=== PATIENT | male | born 1950 | race Two or more races ===

== ENCOUNTER → 2017-11-29 | Outpatient (CLI) | payer OTHER ==
[~2017-11-29] MED LIST: LISINOPRIL20 MG; NORVASC5 MG; PANADOL EXTRA500 MG; XANAX2 MG
== END | disposition home or self-care (01) ==
LOC: SONOGRAMA 12:48
DX: E04.2 Nontoxic multinodular goiter (principal); E03.8 Other specified hypothyroidism

== ENCOUNTER 2017-12-12 12:31 | Outpatient (CLI) | payer OTHER ==
[~2017-12-12] VITALS: Ht 162.6 cm; Wt 65.8 kg
== END 2017-12-12 12:40 | disposition home or self-care (01) ==
LOC: OFIC 805 12:31
DX: R42 Dizziness and giddiness (principal); R49.0 Dysphonia; R09.81 Nasal congestion

== ENCOUNTER 2017-12-19 09:21 | Outpatient (CLI) | payer OTHER ==
[~2017-12-19] VITALS: Ht 152.4 cm; Wt 65.8 kg
== END 2017-12-19 09:45 | disposition home or self-care (01) ==
LOC: OFIC 805 09:21
DX: R49.0 Dysphonia (principal); R09.81 Nasal congestion; R42 Dizziness and giddiness; H90.3 Sensorineural hearing loss, bilateral; H61.23 Impacted cerumen, bilateral

== ENCOUNTER 2018-07-17 09:30 | Outpatient (CLI) | payer OTHER | END 2018-07-17 09:47 | disposition home or self-care (01) | LOC: SONOGRAMA 09:30 | DX: E04.2 Nontoxic multinodular goiter (principal); E03.8 Other specified hypothyroidism ==

== ENCOUNTER 2018-07-23 15:04 | Inpatient (IN) | payer OTHER ==
[~2018-07-23] VITALS: Ht 162.6 cm; Wt 68.0 kg
== END 2018-08-12 13:56 | disposition home or self-care (01) | DRG 627 ==
LOC: O/R 08-09 04:30 → SURH 08-09 04:30
PROVIDERS: Specialist
PROC: 0GTK0ZZ Resection of Thyroid Gland, Open Approach (ICD-10-PCS; principal; 2018-08-09 07:00)
PROC: 3E0F7GC Introduction of Other Therapeutic Substance into Respiratory Tract, Via Natural or Artificial Opening (ICD-10-PCS; 2018-08-10)
PROC: 4A033R1 Measurement of Arterial Saturation, Peripheral, Percutaneous Approach (ICD-10-PCS; 2018-08-10)
DX: E04.2 Nontoxic multinodular goiter (principal); E83.51 Hypocalcemia; Z88.0 Allergy status to penicillin; I10 Essential (primary) hypertension; R13.19 Other dysphagia; R49.0 Dysphonia; E11.65 Type 2 diabetes mellitus with hyperglycemia

== ENCOUNTER 2018-08-23 19:42 | Emergency (ER) | payer OTHER ==
[~2018-08-23] VITALS: Ht 162.6 cm; Wt 65.8 kg
[2018-08-23] MEDS ORDERED: SYNTHROID50 MCG (19:50)
[2018-08-23] MEDS ORDERED: CALCIUM500 M2 (19:51)
[2018-08-24] MEDS ORDERED: KRISTALOSE20 GM PO (00:13)
== END 2018-08-24 00:45 | disposition home or self-care (01) ==
LOC: ER 19:42
DX: K59.09 Other constipation (principal)

== ENCOUNTER 2018-09-19 11:10 | Outpatient (CLI) | payer OTHER ==
[~2018-09-19 11:10] MED LIST changes: +CALCIUM500 M2; +KRISTALOSE20 GM PO; +SYNTHROID50 MCG
== END 2018-09-19 12:04 | disposition home or self-care (01) ==
LOC: RAD 11:10
DX: J32.8 Other chronic sinusitis (principal)

== ENCOUNTER 2018-12-25 14:31 | Outpatient (CLI) | payer OTHER | END 2018-12-25 14:33 | disposition home or self-care (01) | LOC: SONOGRAMA 14:31 | DX: R22.1 Localized swelling, mass and lump, neck (principal) ==

== ENCOUNTER 2018-12-25 16:22 | Outpatient (CLI) | payer OTHER | END 2018-12-25 16:36 | disposition home or self-care (01) | LOC: LAB 16:22 | DX: R84 Abnormal findings in specimens from respiratory organs and thorax (principal); D89.2 Hypergammaglobulinemia, unspecified ==

== ENCOUNTER 2019-01-17 15:11 | Emergency (ER) | payer OTHER ==
[~2019-01-17] VITALS: Ht 162.6 cm; Wt 65.8 kg
[2019-01-17] MEDS ORDERED: METFORMIN HCL500 MG (16:06)
[2019-01-17] MEDS ORDERED: CELECOXIB100 MG PO (20:51)
[2019-01-17] MEDS ORDERED: MECLIZINE HCL25 MG PO (20:51)
== END 2019-01-17 21:08 | disposition home or self-care (01) ==
LOC: ER 15:11
DX: S00.83XA Contusion of other part of head, initial encounter (principal); S19.89XA Other specified injuries of other specified part of neck, initial encounter; R42 Dizziness and giddiness; W22.8XXA Striking against or struck by other objects, initial encounter; Y93.89 Activity, other specified; Y92.89 Other specified places as the place of occurrence of the external cause; Y99.8 Other external cause status

== ENCOUNTER 2019-03-27 08:43 | Outpatient (CLI) | payer OTHER ==
[~2019-03-27 08:43] MED LIST changes: +CELECOXIB100 MG PO; +MECLIZINE HCL25 MG PO; +METFORMIN HCL500 MG
== END 2019-03-27 08:45 | disposition home or self-care (01) ==
LOC: RAD 08:43
DX: M54.6 Pain in thoracic spine (principal)

== ENCOUNTER 2019-03-28 09:16 | Outpatient (CLI) | payer OTHER | END 2019-03-28 12:42 | disposition home or self-care (01) | LOC: SONOGRAMA 09:16 | DX: R59.9 Enlarged lymph nodes, unspecified (principal) ==

== ENCOUNTER 2019-04-10 09:36 | Outpatient (CLI) | payer OTHER ==
[2019-04-10] MEDS ORDERED: EAR WAX REMOVER15 ML OT (10:52)
== END 2019-04-10 11:02 | disposition home or self-care (01) ==
LOC: OFIC 805 09:36
DX: H91.8X3 Other specified hearing loss, bilateral (principal); R49.0 Dysphonia; H61.23 Impacted cerumen, bilateral; R22.1 Localized swelling, mass and lump, neck; K11.1 Hypertrophy of salivary gland; J34.2 Deviated nasal septum

== ENCOUNTER → 2019-05-22 | Outpatient (CLI) | payer OTHER ==
[~2019-05-22] MED LIST changes: +EAR WAX REMOVER15 ML OT
== END | disposition home or self-care (01) ==
LOC: RAD 15:14
DX: K40.90 Unilateral inguinal hernia, without obstruction or gangrene, not specified as recurrent (principal); I10 Essential (primary) hypertension

== ENCOUNTER 2019-05-23 07:19 | Outpatient (CLI) | payer OTHER | END 2019-05-23 07:43 | disposition home or self-care (01) | LOC: LAB 07:19 → EKG 07:19 | DX: K40.90 Unilateral inguinal hernia, without obstruction or gangrene, not specified as recurrent (principal); I10 Essential (primary) hypertension ==

== ENCOUNTER 2019-07-18 13:51 | Outpatient (CLI) | payer OTHER | END 2019-07-18 14:01 | disposition home or self-care (01) | LOC: RAD 13:51 | DX: J45.998 Other asthma (principal) ==

== ENCOUNTER 2019-08-13 05:45 | Day surgery (SDC) | payer OTHER ==
[~2019-08-13 05:45] MED LIST changes: +IBERSARTAN PO; +SYNTHROID100 MCG PO; +TAMS0.4C PO
== END 2019-08-13 16:30 | disposition home or self-care (01) ==
LOC: CIR.AMB 05:45
DX: K40.90 Unilateral inguinal hernia, without obstruction or gangrene, not specified as recurrent (principal); D17.1 Benign lipomatous neoplasm of skin and subcutaneous tissue of trunk

== ENCOUNTER 2019-08-16 18:00 | Emergency (ER) | payer OTHER ==
[~2019-08-16] VITALS: Ht 165.1 cm; Wt 65.8 kg
== END 2019-08-16 23:41 | disposition home or self-care (01) ==
LOC: ER 18:00
DX: K59.09 Other constipation (principal)

== ENCOUNTER 2019-12-30 15:27 | Outpatient (CLI) | payer OTHER | END 2019-12-30 15:28 | disposition home or self-care (01) | LOC: RAD 15:27 | DX: M54.6 Pain in thoracic spine (principal) ==

== ENCOUNTER 2020-01-07 19:02 | Emergency (ER) | payer OTHER ==
[~2020-01-07] VITALS: Ht 162.6 cm; Wt 68.0 kg
[2020-01-07] MEDS ORDERED: TOPROL XL50 MG (19:18)
== END 2020-01-07 21:29 | disposition home or self-care (01) ==
LOC: ER 19:02
DX: R60.0 Localized edema (principal); T50.995A Adverse effect of other drugs, medicaments and biological substances, initial encounter

== ENCOUNTER 2020-04-14 10:55 | Outpatient (CLI) | payer OTHER ==
[~2020-04-14 10:55] MED LIST changes: +TOPROL XL50 MG
== END 2020-04-14 10:56 | disposition home or self-care (01) ==
LOC: RAD 10:55
PROVIDERS: ATTEND Ophthalmology
DX: H25.11 Age-related nuclear cataract, right eye (principal); Z98.41 Cataract extraction status, right eye

== ENCOUNTER 2020-04-28 12:45 | Outpatient (CLI) | payer OTHER | END 2020-04-29 15:25 | disposition home or self-care (01) | LOC: SONOGRAMA 12:45 | PROVIDERS: ATTEND Specialist/Technologist, Other Nephrology | DX: N18.3 Chronic kidney disease, stage 3 (moderate) (principal); E11.21 Type 2 diabetes mellitus with diabetic nephropathy; D63.1 Anemia in chronic kidney disease; N30.00 Acute cystitis without hematuria; E78.49 Other hyperlipidemia; E03.0 Congenital hypothyroidism with diffuse goiter; N20.0 Calculus of kidney ==

== ENCOUNTER → 2020-06-23 | Outpatient (CLI) | payer OTHER | END | disposition home or self-care (01) | LOC: SONOGRAMA 12:38 | PROVIDERS: ATTEND Internal Medicine Endocrinology, Diabetes & Metabolism | DX: E04.2 Nontoxic multinodular goiter (principal) ==

== ENCOUNTER 2020-07-09 19:27 | Emergency (ER) | payer OTHER ==
[~2020-07-09] VITALS: Ht 162.6 cm; Wt 70.3 kg
== END 2020-07-09 21:16 | disposition home or self-care (01) ==
LOC: ER 19:27
DX: R07.89 Other chest pain (principal); Z20.828 Contact with and (suspected) exposure to other viral communicable diseases

== ENCOUNTER 2020-07-21 08:53 | Outpatient (CLI) | payer OTHER | END 2020-07-21 08:54 | disposition home or self-care (01) | LOC: RAD 08:53 | PROVIDERS: ATTEND Internal Medicine Allergy & Immunology | DX: J30.89 Other allergic rhinitis (principal); J32.8 Other chronic sinusitis ==

== ENCOUNTER 2020-08-25 08:41 | Outpatient (CLI) | payer OTHER | END 2020-08-25 08:51 | disposition home or self-care (01) | LOC: SONOGRAMA 08:41 | PROVIDERS: ATTEND Specialist | DX: N20.0 Calculus of kidney (principal) ==

== ENCOUNTER 2021-08-16 10:32 | Outpatient (CLI) | payer OTHER | END 2021-08-16 10:41 | disposition home or self-care (01) | LOC: RAD 10:32 | PROVIDERS: ATTEND Specialist | DX: J45.998 Other asthma (principal) ==

== ENCOUNTER 2021-12-30 14:33 | Emergency (ER) | payer OTHER ==
[~2021-12-30] VITALS: Ht 162.6 cm; Wt 68.0 kg
[2021-12-30] MEDS ORDERED: XANAX1 MG PO (14:57)
[2021-12-30] MEDS ORDERED: TAMS0.4C PO (14:57)
[2021-12-30] MEDS ORDERED: JANUMET XR 1001 EACH PO (14:57)
[2021-12-30] MEDS ORDERED: AVAPRO150 MG PO (14:58)
[2021-12-30] MEDS ORDERED: AMLODIPINE-OLM1 EAC2 (14:58)
== END 2021-12-30 16:21 | disposition home or self-care (01) ==
LOC: ER 14:33
DX: M54.41 Lumbago with sciatica, right side (principal); M54.42 Lumbago with sciatica, left side; Z88.0 Allergy status to penicillin; Z88.8 Allergy status to other drugs, medicaments and biological substances

== ENCOUNTER 2022-03-03 08:43 | Outpatient (CLI) | payer OTHER ==
[~2022-03-03 08:43] MED LIST changes: +AMLODIPINE-OLM1 EAC2; +AVAPRO150 MG PO; +JANUMET XR 1001 EACH PO; +XANAX1 MG PO
== END 2022-03-03 08:44 | disposition home or self-care (01) ==
LOC: NUCLEAR 08:43
PROVIDERS: ATTEND Specialist
DX: I82.409 Acute embolism and thrombosis of unspecified deep veins of unspecified lower extremity (principal); I82.419 Acute embolism and thrombosis of unspecified femoral vein

== ENCOUNTER 2022-04-05 22:55 | Emergency (ER) | payer OTHER ==
[~2022-04-05] VITALS: Ht 162.6 cm; Wt 68.0 kg
== END 2022-04-05 23:44 | disposition home or self-care (01) ==
LOC: ER 22:55
DX: M54.50 Low back pain, unspecified (principal); E11.9 Type 2 diabetes mellitus without complications; Z79.84 Long term (current) use of oral hypoglycemic drugs; I10 Essential (primary) hypertension; Z88.0 Allergy status to penicillin; Z88.8 Allergy status to other drugs, medicaments and biological substances

== ENCOUNTER 2022-06-21 10:48 | Outpatient (CLI) | payer OTHER | END 2022-06-21 11:20 | disposition home or self-care (01) | LOC: TOM 10:48 | PROVIDERS: ATTEND Internal Medicine Cardiovascular Disease | DX: G45.9 Transient cerebral ischemic attack, unspecified (principal) ==

== ENCOUNTER → 2022-08-12 | Emergency (ER) | payer OTHER ==
[~2022-08-12] VITALS: Ht 162.6 cm; Wt 65.8 kg
== END | disposition home or self-care (01) ==
LOC: ER 11:43
DX: M62.830 Muscle spasm of back (principal); E11.9 Type 2 diabetes mellitus without complications; Z79.84 Long term (current) use of oral hypoglycemic drugs; Z88.0 Allergy status to penicillin; Z88.8 Allergy status to other drugs, medicaments and biological substances

== ENCOUNTER 2022-10-20 14:54 | Emergency (ER) | payer OTHER ==
[~2022-10-20] VITALS: Ht 162.6 cm; Wt 65.8 kg
== END 2022-10-20 16:55 | disposition home or self-care (01) ==
LOC: ER 14:54
DX: M51.26 Other intervertebral disc displacement, lumbar region (principal); Z88.0 Allergy status to penicillin; Z88.5 Allergy status to narcotic agent

== ENCOUNTER 2023-03-02 23:07 | Emergency (ER) | payer OTHER ==
[~2023-03-02] VITALS: Ht 160 cm; Wt 65.8 kg
[2023-03-02] MEDS ORDERED: DIOVAN320 MG PO (23:35)
[2023-03-03] MEDS ORDERED: DOLOGESIC 500-1 EACH PO (04:36)
[2023-03-03] MEDS ORDERED: HYDROCHLOROTHIA25 MG PO (04:36)
== END 2023-03-03 04:41 | disposition home or self-care (01) ==
LOC: ER 23:07
DX: I10 Essential (primary) hypertension (principal); Z88.0 Allergy status to penicillin; Z88.8 Allergy status to other drugs, medicaments and biological substances; R42 Dizziness and giddiness

== ENCOUNTER 2024-10-30 09:45 | Outpatient (CLI) | payer OTHER ==
[~2024-10-30 09:45] MED LIST changes: +DIOVAN320 MG PO; +DOLOGESIC 500-1 EACH PO; +HYDROCHLOROTHIA25 MG PO
== END 2024-10-30 10:00 | disposition home or self-care (01) ==
LOC: MRI 09:45
PROVIDERS: ATTEND Specialist
DX: N28.89 Other specified disorders of kidney and ureter (principal)
CPT/HCPCS: 74183

== ENCOUNTER 2024-11-24 14:29 | Emergency (ER) | payer OTHER ==
[~2024-11-24] VITALS: Ht 162.6 cm; Wt 68.0 kg
[2024-11-24] MEDS ORDERED: ORPHENADRINE CITRATE 30 MG/ML AMPUL IM STA (16:58)
[2024-11-24] MEDS ORDERED: DEXAMETHASONE SODIUM PHOSPHATE 4 MG/ML VIAL IM STA (16:58)
[2024-11-24] MEDS ORDERED: DEXAMETHASONE SODIUM PHOSPHATE 4 MG/ML VIAL ONE (17:08)
[2024-11-24] MEDS ORDERED: ORPHENADRINE CITRATE 30 MG/ML AMPUL ONE (17:08)
[2024-11-24] MEDS ORDERED: TYLENOL ARTHRI650 MG PO (18:09)
[2024-11-24] MEDS ORDERED: NORFLEX100MG PO (18:10)
[2024-11-24] MEDS ORDERED: ORPHENADRI30 MG/1 M1 IJ (18:16)
== END 2024-11-24 18:41 | disposition home or self-care (01) ==
LOC: ER 14:31
DX: M54.40 Lumbago with sciatica, unspecified side (principal); M54.41 Lumbago with sciatica, right side; M54.42 Lumbago with sciatica, left side; Z88.0 Allergy status to penicillin; Z88.6 Allergy status to analgesic agent

== ENCOUNTER 2024-12-17 14:35 | Outpatient (CLI) | payer OTHER ==
[~2024-12-17 14:35] MED LIST changes: +NORFLEX100MG PO; +ORPHENADRI30 MG/1 M1 IJ; +TYLENOL ARTHRI650 MG PO
== END 2024-12-17 14:40 | disposition home or self-care (01) ==
LOC: RAD 14:35
PROVIDERS: ATTEND Physical Medicine & Rehabilitation
DX: M54.51 Vertebrogenic low back pain (principal)

== ENCOUNTER 2025-05-09 14:39 | Emergency (ER) | payer OTHER ==
[~2025-05-09] VITALS: Ht 162.6 cm; Wt 68.0 kg
[2025-05-09] MEDS ORDERED: DICLOFENAC SODI75 MG PO (16:52)
[2025-05-09] MEDS ORDERED: CLARITIN10 M1 PO (16:52)
[2025-05-09] MEDS ORDERED: NORFLEX100MG PO (16:52)
[2025-05-09] MEDS ORDERED: DEXAMETHASONE SODIUM PHOSPHATE 4 MG/ML VIAL ONE (16:56)
[2025-05-09] MEDS ORDERED: ORPHENADRINE CITRATE 30 MG/ML AMPUL ONE (16:56)
[2025-05-09] MEDS ORDERED: ORPHENADRINE CITRATE 30 MG/ML AMPUL IM ONE (17:00)
[2025-05-09] MEDS ORDERED: DEXAMETHASONE SODIUM PHOSPHATE 4 MG/ML VIAL IM ONE (17:00)
== END 2025-05-09 18:16 | disposition home or self-care (01) ==
LOC: ER 14:39
DX: M54.50 Low back pain, unspecified (principal); Z88.0 Allergy status to penicillin; Z88.6 Allergy status to analgesic agent; I10 Essential (primary) hypertension; E03.8 Other specified hypothyroidism; E11.9 Type 2 diabetes mellitus without complications; Z79.84 Long term (current) use of oral hypoglycemic drugs
CPT/HCPCS: 96372; 99282; J1100; J2360

== ENCOUNTER 2025-09-21 19:28 | Emergency (ER) | payer OTHER ==
[~2025-09-21] VITALS: Ht 162.6 cm; Wt 681.7 kg
[~2025-09-21 19:28] MED LIST changes: +CLARITIN10 M1 PO; +DICLOFENAC SODI75 MG PO
[2025-09-21] MEDS ORDERED: DEXAMETHASONE SODIUM PHOSPHATE 4 MG/ML VIAL IM ONE (20:00)
[2025-09-21] MEDS ORDERED: CLONIDINE HCL 0.1 MG TABLET PO ONE ×2 (20:12→20:15)
[2025-09-21] MEDS ORDERED: ACETAMINOPHEN 500 MG GEL..CAP PO ONE ×2 (20:12→20:15)
[2025-09-21] MEDS ORDERED: DEXAMETHASONE SODIUM PHOSPHATE 4 MG/ML VIAL ONE (20:13)
[2025-09-21] MEDS ORDERED: NAPR500T14 PO (21:22)
== END 2025-09-21 22:00 | disposition home or self-care (01) ==
LOC: ER 19:29
DX: S43.491A Other sprain of right shoulder joint, initial encounter (principal); W19.XXXA Unspecified fall, initial encounter; Y93.89 Activity, other specified; Y92.89 Other specified places as the place of occurrence of the external cause; Y99.9 Unspecified external cause status; E11.9 Type 2 diabetes mellitus without complications; Z79.84 Long term (current) use of oral hypoglycemic drugs; I10 Essential (primary) hypertension; Z88.0 Allergy status to penicillin; Z88.8 Allergy status to other drugs, medicaments and biological substances
CPT/HCPCS: 73030; 73564; 96372; 99283; J1100